=== PATIENT | male | born 1965 | race African-American/Black ===

== ENCOUNTER 2021-01-07 16:29 | Emergency (ER) | payer MEDICARE, MEDICAID ==
[~2021-01-07] VITALS: Ht 185.4 cm; Wt 112.0 kg
[2021-01-07] MEDS ORDERED: IBUPROFEN 600MG TABLET PO ONE (19:45)
[2021-01-07] MEDS ORDERED: PENI500T MT (20:22)
[2021-01-07] MEDS ORDERED: IBUP-2029 PO (20:22)
[2021-01-07 20:35] VITALS: BP 165/98
[2021-01-08] MEDS ORDERED: PENICILLIN V POTASSIUM 250MG TABLET PO SCH
== END 2021-01-07 20:36 | disposition home or self-care (01) ==
LOC: ER 16:29
DX: R22.0 Localized swelling, mass and lump, head (principal); K04.01 Reversible pulpitis; F20.9 Schizophrenia, unspecified; I10 Essential (primary) hypertension; F31.9 Bipolar disorder, unspecified; Z88.6 Allergy status to analgesic agent
CPT/HCPCS: 99283

== ENCOUNTER 2022-11-10 11:03 | Emergency (ER) | payer MEDICARE, MEDICAID ==
[~2022-11-10] VITALS: Ht 182.9 cm; Wt 113.0 kg
[~2022-11-10 11:03] MED LIST: IBUP-2029 PO; PENI500T MT
[2022-11-10 11:15] VITALS: BP 120/47; PULSE 59; RESP 20; TEMP 98.4; O2SAT 100
[2022-11-10] MEDS ORDERED: HYDR-4622 TP (11:27)
== END 2022-11-10 11:53 | disposition home or self-care (01) ==
LOC: ER 11:03
DX: S40.862A Insect bite (nonvenomous) of left upper arm, initial encounter (principal); S30.860A Insect bite (nonvenomous) of lower back and pelvis, initial encounter; I10 Essential (primary) hypertension; Z86.59 Personal history of other mental and behavioral disorders; W57.XXXA Bitten or stung by nonvenomous insect and other nonvenomous arthropods, initial encounter; Y93.89 Activity, other specified; Y92.89 Other specified places as the place of occurrence of the external cause; Y99.8 Other external cause status
CPT/HCPCS: 99282